=== PATIENT | female | born 2000 | race Hispanic/Latino ===

== ENCOUNTER 2022-08-16 13:18 | Outpatient (CLI) | payer OTHER ==
[2022-08-16 15:05] LABS: BHCG - Serum Negative (NEGATIVE); Pregs Control Background? CLEAR/WHITE (CLR/WHITE); Pregs Control Bar Appear? YES (CONTROL BAR)
== END 2022-08-16 13:19 | disposition home or self-care (01) ==
LOC: LABBT 13:18
PROVIDERS: ATTEND Otolaryngology Plastic Surgery within the Head & Neck
DX: Z01.812 Encounter for preprocedural laboratory examination (principal); J35.3 Hypertrophy of tonsils with hypertrophy of adenoids; J35.01 Chronic tonsillitis; R06.83 Snoring
CPT/HCPCS: 84703; 85014

== ENCOUNTER 2022-08-21 07:08 | Day surgery (SDC) | payer OTHER ==
[2022-08-19 12:02] VITALS: BMI 31.1
[2022-08-21] MEDS ORDERED: fentaNYL PF 100 MCG/2 ML SYRINGE ONE (09:17)
[2022-08-21] MEDS ORDERED: Midazolam HCl 2 mg/2 ml Vial ONE (09:17)
[2022-08-21] MEDS ORDERED: HYDROmorphone 0.5 MG/0.5 ML SYRINGE ONE (09:18)
[2022-08-21] MEDS ORDERED: Ondansetron PF 4 MG/2 ML Vial ONE (09:34)
[2022-08-21] MEDS ORDERED: Lidocaine 1% PF 5 ML VIAL ONE (09:34)
[2022-08-21] MEDS ORDERED: PROPOFOL 200 MG/20 ML VIAL ONE (09:34)
[2022-08-21] MEDS ORDERED: Dexamethasone 20 MG/5 ML VIAL ONE (09:34)
[2022-08-21] MEDS ORDERED: methylPREDNISolone Acetate 40 mg/ml Vial ONE (09:50)
[2022-08-21] MEDS ORDERED: FENTANYL 50 MCG/ML 1 ML VIAL ONE ×3 (10:29→11:20)
[2022-08-21] MEDS ORDERED: Hydrocodone-Acetamin 15 ML UDCUP ONE (12:51)
== END 2022-08-21 13:50 | disposition home or self-care (01) ==
LOC: SDC 07:08
PROVIDERS: ATTEND Otolaryngology Plastic Surgery within the Head & Neck
PROC: 0CTQXZZ Resection of Adenoids, External Approach (ICD-10-PCS; principal; 2022-08-21)
PROC: 0CTPXZZ Resection of Tonsils, External Approach (ICD-10-PCS; principal; 2022-08-21)
DX: J35.03 Chronic tonsillitis and adenoiditis (principal); Q38.2 Macroglossia; Z86.16 Personal history of COVID-19
CPT/HCPCS: 88304; J1030; J1100; J1170; J2250; J2405; J2704; J3010